=== PATIENT | female | born 1960 | race African-American/Black ===

== ENCOUNTER 2024-10-15 17:39 | Observation (INO) ==
[2024-10-15] MEDS: SODIUM CHLORIDE 0.9% 1,000 ML IV ONE (17:52)
[2024-10-15 18:15] LABS: Hematocrit (blood only) 30.3 % (37.0-47.0); Hemoglobin 10.3 g/dl (12.0-16.0); Immature Granulocytes # (auto) 0.02 K/uL (0.01-0.20); Immature Granulocytes % (auto) 0.3 %; Mean Corpuscular Hemoglobin 29.4 pg (25.0-34.0); Mean Corpuscular Volume 86.6 fL (80.0-100.0); Platelet Count 204 K/uL (130-400); RDW Standard Deviation 43.3 fL (36.4-46.3); Red Blood Count 3.50 M/uL (4.20-5.40); White Blood Count 7.52 K/ul (4.8-10.8)
--- NOTE | 2024-10-15 18:22 | CT Scan Report ---
EXAMINATION: Head CT without CLINICAL HISTORY: Syncope PRIORS: None TECHNIQUE: Contiguous axial images were obtained through the head without the use of intravenous contrast. Sagittal and coronal reformations are supplied. FINDINGS: Appropriate parenchymal volume is noted. Boyd-white differentiation is preserved. No edema or midline shift. A small chronic appearing infarction of the left occipital lobe, medial aspect noted in the SAW [employer] distribution. No intra-axial or extra-axial hemorrhage. Ventricles are normal in size and configuration. Brainstem and cerebellum have a normal appearance. Calvarium unremarkable. Paranasal sinuses and mastoid air cells are well-pneumatized. Globes are intact. No retrobulbar abnormality. IMPRESSION: 1. No CT evidence of an acute intracranial abnormality. If clinical concern warrants, brain MRI could be considered. 2. Small chronic left occipital lobe infarction. Electronically signed by Emerald Lucero 10-15-2024 6:20 PM
[2024-10-15 18:32] LABS: Alanine Aminotransferase 9.0 U/L (7-52); Albumin Globulin Ratio 0.9 (0.9-2); Alkaline Phosphatase 94.0 U/L (34-104); Anion Gap 10.0 (3-11); Bilirubin,Total 0.4 mg/dl (0.2-1.0); Blood Urea Nitrogen 63.0 mg/dl (6-23); Calcium 9.3 mg/dl (8.6-10.3); Carbon Dioxide 21.0 mmol/L (21-32); Chloride 106.0 mmol/L (98-107); Creatinine Clr Calc Pharmacy 18.3 ml/min; Globulin 4.4 gm/dl (2.5-4.0); Glucose 130.0 mg/dl (70-99(Fasting)); Lipase 165.0 U/L (11-82); Potassium 4.0 mmol/L (3.5-5.1); Sodium 137.0 mmol/L (136-145); Total Protein 8.3 gm/dl (6.0-8.3)
--- NOTE | 2024-10-15 18:54 | Emergency Department Note ---
Impression & Plan Syncope, VAMSI (acute kidney injury) ED Provider Note NAME: ALEXSANDRA [id number] CHAMBERS AGE: 64 SEX: F : 1960 ARRIVES VIA: Ambulance INFORMANT: Patient ED PROVIDER(S): Lio Dorsey DO CHIEF COMPLAINT: Syncope HPI: Patient is a 64-year-old female with a past medical history of hypertension, kidney disease, and diabetes who presents to the ER for a syncopal event. She was walking and she can very lightheaded and she passed out. She does take Eliquis. She denies any head pain or neck pain. No other complaints from that standpoint. There is no reported seizure activity. Per report from the provider there he was concerned due to her past medical history and the syncope and has had an increasing creatinine and consequently wanted her transferred here for admission and further evaluation. Patient denies any headache or change in vision. No chest pain or shortness of breath. No nausea, vomiting, or diarrhea. No dysuria, urgency, or frequency. No other exacerbating or remitting factors at this time. ADDITIONAL HISTORY OBTAINED: Guards were present at bedside do not know what happened as they were not present when she passed out. Chronic Medical/Social Conditions Affecting Care: Per HPI PAST MEDICAL HISTORY:See Below PAST SURGICAL HISTORY:See Below FAMILY HISTORY:See Below SOCIAL HISTORY:See Below HOME MEDICATIONS:See Below ALLERGIES:See Below VITALS:See Below PHYSICAL EXAMINATION: GENERAL: Sitting up in bed, alert, well appearing, well nourished, no distress, non-toxic HEAD: NC/AT EYE EXAM: normal conjunctiva. PERRL and EOM's grossly intact. OROPHARYNX: mucous membranes are moist LUNGS: Clear to auscultation. Normal chest wall mechanics HEART: no murmurs, S1 normal and S2 normal ABDOMEN: abdomen soft, non-tender, normo-active bowel sounds, no masses, no rebound or guarding. BACK: Back is symmetrical on inspection and there is no deformity, no midline tenderness, no CVA tenderness. UPPER EXTREMITIES: upper extremities are grossly normal. LOWER EXTREMITIES: No pitting edema. NEURO EXAM: Normal sensorium, cranial nerves II-XII intact, normal speech, no weakness of arms, no weakness of legs. No drift. Finger to nose intact. Gross sensation intact. MEDICAL DECISION MAKING: Patient is a 64-year-old female with a past medical history as described above who presents to the ER for syncopal event with no prodromal symptoms with exception of feeling lightheaded and passing out acutely. IVs were established and blood work was obtained. Labs showed no significant leukocytosis. She does have anemia of 10. BMP with elevated BUN and creatinine 2.9. LFTs bilirubin were unremarkable. Troponin was negative. Lipase mildly elevated at 160. No belly pain to go along with pancreatitis. She is neurologically intact at this time. CT head was negative. She was given IV fluids. She was updated at bedside. EKG was nondiagnostic. Discussed case with the hospitalist for further evaluation management treatment. Consults/Care Managements Discussions: Per [facility] Triage Nursing notes reviewed. Limited review of prior medical records performed Vital Signs: reviewed and remarkable for hypertension Differential diagnosis: Differential diagnosis includes etiologies such as vasovagal event, infection, hypoglycemia, electrolyte abnormalities, cardiac sources, intracerebral event, toxicologic, neurologic, as well as others were entertained. ER treatment provided: See below Diagnostics interpreted by me include EKG and cardiac monitoring as listed below: -Cardiac Monitoring: An order was placed for continuous cardiac monitoring. The monitor shows a rate of 70 with sinus rhythm. -ECG: Sinus rhythm rate of 65 Normal axis No PVCs QTc 426 T wave inversion in the high lateral leads T wave inversion in septal leads -Laboratory studies:Interpreted by me as stated above in [facility] and shown below. Imaging studies: Xrays: As interpreted by me: Portable AP upright 1 view of the chest shows no focal M-Trate CTs show: CT head was negative per radiology Procedures:none Critical Care: None Past Med/Surg History Problem List (Updated 10/15/24 @ 19:15 by Lio Dorsey DO) VAMSI (acute kidney injury) (Acute) Syncope (Acute) Social History Smoking Status: Never smoker Preferred Language: Bahraini Feels Safe at Home: Yes Allergies Allergies Allergy/AdvReac Type Severity Reaction Status Date / Time No Known Allergies Allergy Verified 10/15/24 18:44 Home Meds Home Medications Medication Instructions Recorded Confirmed albuterol sulfate 90 mcg/actuation 2 puff inhalation QID PRN 10/15/24 10/15/24 aerosol inhaler EXACERBATION apixaban 5 mg tablet (Eliquis) 5 mg PO BID 10/15/24 10/15/24 atorvastatin 40 mg tablet 40 mg PO DAILY 10/15/24 10/15/24 empagliflozin 25 mg tablet 25 mg PO DAILY 10/15/24 10/15/24 (Jardiance) hydrochlorothiazide 12.5 mg tablet 12.5 mg PO DAILY 10/15/24 10/15/24 losartan 100 mg tablet 100 mg PO DAILY 10/15/24 10/15/24 metoprolol succinate 25 mg 25 mg PO DAILY 10/15/24 10/15/24 tablet,extended release 24 hr nifedipine 90 mg tablet,extended 90 mg PO DAILY 10/15/24 10/15/24 release 24 hr spironolactone 25 mg tablet 12.5 mg PO DAILY 10/15/24 10/15/24 Results & Data (ED) Vital Signs Vital Signs - 24 hr 10/15/24 17:45 10/15/24 18:25 10/15/24 18:30 Temperature 37.2 C Temperature Source Oral Pulse Rate 67 60 Pulse Rate [Apical] 59 L Respiratory Rate 16 12 18 Respiratory Effort / Characteristics Non-Labored Spontaneous Respiratory Depth Normal Blood Pressure 141/100 H 145/78 H Blood Pressure [Right Arm] 145/78 H Blood Pressure Mean 113 100 Blood Pressure Mean [Right Arm] 100 Pulse Oximetry 95 100 99 Oxygen Delivery Method Room Air Room Air Room Air Sepsis Recent Fever Within 48 Hours No Sepsis New/Unexplained Change in Mental Status No Sepsis Action Taken by Nursing No Action Required Pulse Oximetry Post Tiitration 10/15/24 18:38 10/15/24 18:41 10/15/24 18:45 Temperature Temperature Source Pulse Rate 62 Pulse Rate [Apical] Respiratory Rate Respiratory Effort / Characteristics Respiratory Depth Blood Pressure Blood Pressure [Right Arm] Blood Pressure Mean Blood Pressure Mean [Right Arm] Pulse Oximetry 100 Oxygen Delivery Method Room Air Room Air Sepsis Recent Fever Within 48 Hours Sepsis New/Unexplained Change in Mental Status Sepsis Action Taken by Nursing Pulse Oximetry Post Tiitration 100 Laboratory Data 10/15/24 17:53 10/15/24 17:53 Lab Results 10/15/24 10/15/24 Range/Units 17:53 17:58 WBC 7.52 (4.8-10.8) K/ul RBC 3.50 L (4.20-5.40) M/uL Hgb 10.3 L (12.0-16.0) g/dl POC Hgb 10.2 L (12.0-16.0) g/dl Hct 30.3 L (37.0-47.0) % POC Hct 30 L (37-47) % MCV 86.6 (80.0-100.0) fL MCH 29.4 (25.0-34.0) pg MCHC 34.0 (32.0-36.0) g/dL RDW Std Deviation 43.3 (36.4-46.3) fL RDW Coeff of Johan 13.7 (11.5-14.5) % Plt Count 204 (130-400) K/uL MPV 11.4 (9.4-12.4) fL Immature Gran % (Auto) 0.3 % Neut % (Auto) 69.0 % Lymph % (Auto) 21.9 % Victoria % (Auto) 6.0 % Eos % (Auto) 2.5 % Baso % (Auto) 0.3 % Neut # (Auto) 5.19 (1.40-6.50) K/uL Lymph # (Auto) 1.65 (1.20-3.40) K/uL Victoria # (Auto) 0.45 (0.11-0.59) K/uL Eos # (Auto) 0.19 (0.00-0.50) K/uL Baso # (Auto) 0.02 (0.00-0.20) K/uL Immature Gran # (Auto) 0.02 (0.01-0.20) K/uL POC Sodium 140 (135-144) mmol/L Sodium 137 (136-145) mmol/L POC Potassium 4.0 (3.3-5.0) mmol/L Potassium 4.0 (3.5-5.1) mmol/L POC Chloride 107 (101-112) mmol/L Chloride 106 (98-107) mmol/L Carbon Dioxide 21 (21-32) mmol/L POC Total CO2 21 L (24-31) mmol/L Anion Gap 10 (3-11) POC Anion Gap 16.0 (16-25) mmol/L POC BUN 52 H (7-18) mg/dl BUN 63 H (6-23) mg/dl Creatinine 2.91 H (0.6-1.2) mg/dl POC Creatinine 3.3 H (0.6-1.3) mg/dl Est Cr Clr Drug Dosing 18.3 ml/min eGFR 17.46 BUN/Creatinine Ratio 21.6 H (10-20) Glucose 130 H (70-99(Fasting)) mg/dl POC Glucose (other) 125 H (70-99) mg/dl Calcium 9.3 (8.6-10.3) mg/dl POC Ioniz Calcium Piyush 1.12 (1.12-1.32) mmol/l Total Bilirubin 0.4 (0.2-1.0) mg/dl AST 15 (13-39) U/L ALT 9 (7-52) U/L Alkaline Phosphatase 94 (34-104) U/L Troponin I High Sens 12.4 (0-14) pg/ml Total Protein 8.3 (6.0-8.3) gm/dl Albumin 3.9 (3.4-5.0) gm/dl Globulin 4.4 H (2.5-4.0) gm/dl Albumin/Globulin Ratio 0.9 (0.9-2) Lipase 165 H (11-82) U/L Administered Medications Discontinued Medications Sodium Chloride (Nss) 1,000 mls @ 999 mls/hr IV .Q1H1M ONE Stop: 10/15/24 18:49 Last Admin: 10/15/24 17:52 Dose: 999 mls/hr Documented By: [facility] Imaging Data Radiologist's Impression: Chest X-Ray 10/15/24 17:43 Chest radiograph, one view History: Chest pain Comparison: None Findings: Single AP view of the chest performed. No focal consolidation or pleural effusion. No pneumothorax. The cardiomediastinal silhouette is within normal limits. Normal pulmonary vascularity. No evidence for lymphadenopathy. No visualized bony or soft tissue abnormality. Impression: Normal chest radiograph Electronically signed by Harshil Toney 10-15-2024 7:[address] 10/15/24 17:43 EXAMINATION: Head CT without CLINICAL HISTORY: Syncope PRIORS: None TECHNIQUE: Contiguous axial images were obtained through the head without the use of intravenous contrast. Sagittal and coronal reformations are supplied. FINDINGS: Appropriate parenchymal volume is noted. Boyd-white differentiation is preserved. No edema or midline shift. A small chronic appearing infarction of the left occipital lobe, medial aspect noted in the [employer] distribution. No intra-axial or extra-axial hemorrhage. Ventricles are normal in size and configuration. Brainstem and cerebellum have a normal appearance. Calvarium unremarkable. Paranasal sinuses and mastoid air cells are well-pneumatized. Globes are intact. No retrobulbar abnormality. IMPRESSION: 1. No CT evidence of an acute intracranial abnormality. If clinical concern warrants, brain MRI could be considered. 2. Small chronic left occipital lobe infarction. Electronically signed by Emerald Lucero 10-15-2024 6:20 PM Discharge Plan Visit Data Chief Complaint: Syncope Stated Complaint: syncope ED Provider: Lio Dorsey Discharge Problem: Syncope, VAMSI (acute kidney injury) Condition: Fair Forms Stand Alone Forms: My [facility] Prescriptions Prescriptions: No Action atorvastatin 40 mg Tablet 40 mg PO DAILY spironolactone 25 mg Tablet 12.5 mg PO DAILY nifedipine 90 mg Tablet Extended Release 24hr 90 mg PO DAILY metoprolol succinate 25 mg Tablet Extended Release 24 Hr 25 mg PO DAILY albuterol sulfate [Proventil HFA] 90 mcg/actuation Hfa Aerosol Inhaler 2 puff INHALATION QID PRN (Reason: EXACERBATION) losartan 100 mg Tablet 100 mg PO DAILY hydrochlorothiazide 12.5 mg Tablet 12.5 mg PO DAILY Eliquis 5 mg Tablet 5 mg PO BID Jardiance 25 mg Tablet 25 mg PO DAILY Referrals Referrals: Chaparro Moya DO [Primary Care Provider] - Discharge Problem: Syncope Qualifiers: Syncope type: unspecified Qualified Code(s): R55 - Syncope and collapse
--- NOTE | 2024-10-15 19:03 | XRay Report ---
Chest radiograph, one view History: Chest pain Comparison: None Findings: Single AP view of the chest performed. No focal consolidation or pleural effusion. No pneumothorax. The cardiomediastinal silhouette is within normal limits. Normal pulmonary vascularity. No evidence for lymphadenopathy. No visualized bony or soft tissue abnormality. Impression: Normal chest radiograph Electronically signed by Harshil Toney 10-15-2024 7:03 PM
--- NOTE | 2024-10-15 19:20 | History & Physical Report ---
Date of Service October 15, 2024 Assessment & Plan (1) Syncope: (2) VAMSI (acute kidney injury): (3) Anemia: Plan 64-year-old female PMHx HTN, CKD, A-fib on Eliquis, and HLD presenting for syncopal episode afternoon of arrival after being in the heat all day. Reports feeling dizzy and hot prior to episode. ED evaluation reveals CBC without leukocytosis, H&H 10.3/30.3; CMP creatinine 2.91, BUN 63, ratio 1.6, glucose 130; troponin 12.4; lipase 165; CXR WNL; head CT no acute findings, small chronic L occipital lobe infarct; EKG NSR, possible LAE, LVH at 65 bpm.; Provided with 1L NSS in ED. #Syncope Syncopal event the day of arrival after being outside all day. [place] lightheaded before and then passed out, unsure how long, not sure if she had involuntary movements. Did not hit head. States that women around her helped to hold her up. Also in setting of VAMSI, increased heat exposure, multiple BP medications. Low suspicion for ACS or neurologic etiology. - On multiple BP meds, no recent changes, ? orthostasis day of arrival -- holding HCTZ + spironolactone at admission, continue additional BP meds for now - CBC without leukocytosis, H&H 10.3/30.3; CMP creatinine 2.91, BUN 63; troponin 12.4 - CBC, BMP am - TSH pending - EKG NSR with possible LAE and LVH at 65 bpm, no ischemic changes - CXR WNL - CT head no acute findings, revealed small chronic L occipital lobe infarct - Echo pending - Orthostatic vitals pending - Fall precautions - IVF LR @ 100 mL/hr #VAMSI/CKD History of CKD, reported baseline creatinine around 2.1-2.4. On Jardiance. Received 1L NSS in ED. - Cr 2.91, BUN 63 - UA pending - Bladder scan prn - Hold nephrotoxic agents - HCTZ, spironolactone - Jardiance held -- restricted to CHF/DM use inpatient when ordering from home meds - continue at discharge - IVF LR @ 100 mL/hr #Anemia In setting of CKD; denies bleeding. - H&H 10.3/30.3 - CBC am - Iron panel, vitamin B12, folate pending #HTN- HCTZ, losartan, metoprolol, nifedipine, spironolactone - hold HCTZ and spironolactone, continue additional meds with close attention to HTN #Afib- EKG NSR on admission; Eliquis, metoprolol - continue #Asthma- Proventil prn - continue #HLD- Atorvastatin - continue Dispo: Obs, med/tele VTE Prophylaxis: On Eliquis This document was dictated utilizing [employer]. Please excuse any grammatical errors that may be secondary to use of this software. Admission and Anticipated Discharge Date Admission Date: 10/15/2024 History of Present Illness Chief Complaint: Syncope Primary Care Provider: Chaparro Moya DO 64-year-old female PMHx HTN, CKD, A-fib on Eliquis, and HLD presenting for syncopal episode afternoon of arrival after being in the heat all day. Patient states that she was outside throughout the day in the heat with another woman. Eventually the officers had told them that it was time to go back inside and as she was heading for the door she started to feel lightheaded/dizzy, feeling as though she was going to fall over. She states that she started to fall down and believes that she had lost consciousness at that point but the one around her helped to hold her up. She is unsure how long she was unconscious for, stating "probably just a few moments." No involuntary movements noted per patient. No history of seizures. She denies experiencing any chest pain, SOB, headache, or additional symptoms prior to this episode. Denies chest pain, SOB, palpitations, abdominal pain, N/V/D/C, numbness/tingling, fever/chills, LUTS, URI symptoms, swelling, or weakness. She is back to her normal health at present. Denies postictal state. She takes all of her medications as prescribed, specifically taking her Eliquis as prescribed. ED evaluation reveals CBC without leukocytosis, H&H 10.3/30.3; CMP creatinine 2.91, BUN 63, ratio 1.6, glucose 130; troponin 12.4; lipase 165; CXR WNL; head CT no acute findings, small chronic L occipital lobe infarct; EKG NSR, possible LAE, LVH at 65 bpm.; Provided with 1L NSS in ED. Please see Dr. Rivera's attestation for adjustments/additions to treatment plan. Allergies Allergy/AdvReac Type Severity Reaction Status Date / Time No Known Allergies Allergy Verified 10/15/24 18:44 Home Medications Medication Instructions Recorded Confirmed Type albuterol sulfate 90 mcg/actuation 2 puff inhalation QID PRN 10/15/24 10/15/24 History aerosol inhaler EXACERBATION apixaban 5 mg tablet (Eliquis) 5 mg PO BID 10/15/24 10/15/24 History atorvastatin 40 mg tablet 40 mg PO DAILY 10/15/24 10/15/24 History empagliflozin 25 mg tablet 25 mg PO DAILY 10/15/24 10/15/24 History (Jardiance) hydrochlorothiazide 12.5 mg tablet 12.5 mg PO DAILY 10/15/24 10/15/24 History losartan 100 mg tablet 100 mg PO DAILY 10/15/24 10/15/24 History metoprolol succinate 25 mg 25 mg PO DAILY 10/15/24 10/15/24 History tablet,extended release 24 hr nifedipine 90 mg tablet,extended 90 mg PO DAILY 10/15/24 10/15/24 History release 24 hr spironolactone 25 mg tablet 12.5 mg PO DAILY 10/15/24 10/15/24 History Past Med/Surg History Problem List Anemia VAMSI (acute kidney injury) (Acute) Syncope (Acute) Social History Smoking Status: Never smoker Hx Alcohol Use: No Hx Substance Use: No Preferred Language: Honduran Communication Ability: Effective Tongue Carrier Required: No Beliefs That Will Affect Care: None Current Living Situation: Other Current Living Situation Comment: inmate Feels Safe at Home: Yes Safety Concerns: Feels Safe At This Time Assistive Devices: Glasses Review of Systems Review of Systems: All systems reviewed & are unremarkable except as noted in Subjective Physical Exam Physical Exam: General: No acute distress Skin: Warm and dry; BLE dry skin Head: Normocephalic, atraumatic Eyes: PERRL, conjunctivae clear, sclera non-icteric ENT: External ear and ear canal without swelling; nose atraumatic; good dentition, tongue normal appearance, pharynx normal Neck: Supple, no LAD Cardio: RRR, no M/G/R, S1 and S2 normal Resp: No respiratory distress, Lungs CTA in all lobes bilaterally, no wheezes, rales, or rhonchi Abdomen: Soft, symmetric, nontender; No masses or hepatosplenomegaly; Bowel sounds normoactive MSK: No deformities; pulses palpable and equal; no edema. Neuro: Awake, alert; Sensation intact bilaterally; CN grossly intact Psych: Appropriate mood and affect; good judgement and insight. 2 officers present in room at time of vi sit. Results & Data Results & Data Vital Signs (Past 12 Hours) Vital Signs Temp Pulse Pulse Resp BP BP Pulse Ox 10/15/24 18:45 62 10/15/24 18:41 10/15/24 18:38 100 10/15/24 18:30 60 18 145/78 H 99 10/15/24 18:25 59 L 12 145/78 H 100 10/15/24 17:45 37.2 C 67 16 141/100 H 95 O2 Del Method 10/15/24 18:45 10/15/24 18:41 Room Air 10/15/24 18:38 Room Air 10/15/24 18:30 Room Air 10/15/24 18:25 Room Air 10/15/24 17:45 Room Air Laboratory Results 10/15/24 10/15/24 17:58 17:53 WBC 7.52 RBC 3.50 L Hgb 10.3 L POC Hgb 10.2 L Hct 30.3 L POC Hct 30 L MCV 86.6 MCH 29.4 MCHC 34.0 RDW Std Deviation 43.3 RDW Coeff of Johan 13.7 Plt Count 204 MPV 11.4 Immature Gran % (Auto) 0.3 Neut % (Auto) 69.0 Lymph % (Auto) 21.9 [place] % (Auto) 6.0 Eos % (Auto) 2.5 Baso % (Auto) 0.3 Neut # (Auto) 5.19 Lymph # (Auto) 1.65 [place] # (Auto) 0.45 Eos # (Auto) 0.19 Baso # (Auto) 0.02 Immature Gran # (Auto) 0.02 POC Sodium 140 Sodium 137 POC Potassium 4.0 Potassium 4.0 POC Chloride 107 Chloride 106 Carbon Dioxide 21 POC Total CO2 21 L Anion Gap 10 POC Anion Gap 16.0 POC BUN 52 H BUN 63 H Creatinine 2.91 H POC Creatinine 3.3 H Est Cr Clr Drug Dosing 18.3 eGFR 17.46 BUN/Creatinine Ratio 21.6 H Glucose 130 H POC Glucose (other) 125 H Calcium 9.3 POC Ioniz Calcium Piyush 1.12 Total Bilirubin 0.4 AST 15 ALT 9 Alkaline Phosphatase 94 Troponin I High Sens 12.4 Total Protein 8.3 Albumin 3.9 Globulin 4.4 H Albumin/Globulin Ratio 0.9 Lipase 165 H Diagnostic Findings Chest X-Ray 10/15/24 17:43 Chest radiograph, one view History: Chest pain Comparison: None Findings: Single AP view of the chest performed. No focal consolidation or pleural effusion. No pneumothorax. The cardiomediastinal silhouette is within normal limits. Normal pulmonary vascularity. No evidence for lymphadenopathy. No visualized bony or soft tissue abnormality. Impression: Normal chest radiograph Electronically signed by Harshil Toney 10-15-2024 7:[address] 10/15/24 17:43 EXAMINATION: Head CT without CLINICAL HISTORY: Syncope PRIORS: None TECHNIQUE: Contiguous axial images were obtained through the head without the use of intravenous contrast. Sagittal and coronal reformations are supplied. FINDINGS: Appropriate parenchymal volume is noted. Boyd-white differentiation is preserved. No edema or midline shift. A small chronic appearing infarction of the left occipital lobe, medial aspect noted in the [employer] distribution. No intra-axial or extra-axial hemorrhage. Ventricles are normal in size and configuration. Brainstem and cerebellum have a normal appearance. Calvarium unremarkable. Paranasal sinuses and mastoid air cells are well-pneumatized. Globes are intact. No retrobulbar abnormality. IMPRESSION: 1. No CT evidence of an acute intracranial abnormality. If clinical concern warrants, brain MRI could be considered. 2. Small chronic left occipital lobe infarction. Electronically signed by Emerald Lucero 10-15-2024 6:20 PM Medications Administered 1L NSS ECG Additional Comments: NSR, possible LAE, LVH 65 bpm, AR 180, QRS 90, QT/QTc 410/426, PRT 59/0/101 Code Status & VTE Plan Code Status Full Supervising Physician Co-Signing Physician Notes Patient seen examined, chart reviewed, case discussed with NEL Davies I agree with the assessment plan as document above. In brief, patient is a 64-year-old female with history of hypertension, A-fib on Eliquis and hyperlipidemia presenting after a syncopal episode. No chest pain or shortness of breath. Patient feels well at present On physical exam she is resting comfortably, no acute distress + S1, S2, regular, no murmur/rub/gallops Lungs CTA Abdomen soft, nontender, nondistended Extremities warm, well-perfused Labs and images reviewed Assessment/plan Syncopecheck orthostatics, 2D echo, hold diuretics VAMSI with creatinine = 2.91, baseline of 2.1-2.4. Continue IV fluids overnight Remainder as above PG Care Time/CCT Total # of Minutes Spent Total Time Spent with Patient: Total time spent is greater than 50% in coordination of care (as documented) at patient's floor/unit and/or counseling patient: Coding Level of Care Code 12276 INT INP/OBS CARE 75MIN Diagnoses Syncope R55 Syncope type: unspecified VAMSI (acute kidney injury) N17.9 Anemia D64.9 (1) Syncope Syncope type: unspecified Qualified Code(s): R55 - Syncope and collapse
[2024-10-15 20:23] LABS: Thyroid Stimulating Hormone 1.173 uIu/ml (0.300-4.500)
[2024-10-15] MEDS ORDERED: MELATONIN 3 MG TAB PO PRN (20:52)
[2024-10-15] MEDS ORDERED: ONDANSETRON INJ 2 MG/ML 2 ML VIAL IV PRN (20:52)
[2024-10-15] MEDS ORDERED: MAGNESIUM HYDROXIDE SUSP 30 ML UDC PO PRN (20:52)
[2024-10-15] MEDS ORDERED: ALBUTEROL HFA 8 GM INHALER INH PRN (20:52)
[2024-10-15] MEDS ORDERED: POLYETHYLENE (MIRALAX) 17 GM PACK PO PRN (20:52)
[2024-10-15] MEDS: LACTATED RINGER'S 1,000 ML IV SCH (21:07)
[2024-10-15] MEDS: APIXABAN 5 MG TABLET PO SCH (21:32)
[2024-10-15] MEDS: BETAMETHASONE VAL 0.1% CR 15 GM EXT PRN (22:17)
[2024-10-16 07:17] LABS: Hematocrit (blood only) 28.4 % (37.0-47.0); Hemoglobin 9.7 g/dl (12.0-16.0); Mean Corpuscular Hemoglobin 29.5 pg (25.0-34.0); Mean Corpuscular Volume 86.3 fL (80.0-100.0); Platelet Count 188 K/uL (130-400); RDW Standard Deviation 42.9 fL (36.4-46.3); Red Blood Count 3.29 M/uL (4.20-5.40); White Blood Count 5.47 K/ul (4.8-10.8)
[2024-10-16 07:38] LABS: Anion Gap 7.0 (3-11); Blood Urea Nitrogen 52.0 mg/dl (6-23); Calcium 9.1 mg/dl (8.6-10.3); Carbon Dioxide 24.0 mmol/L (21-32); Chloride 111.0 mmol/L (98-107); Creatinine Clr Calc Pharmacy 21.5 ml/min; Glucose 89.0 mg/dl (70-99(Fasting)); Iron 66.0 mcg/dl (35-150); Potassium 3.8 mmol/L (3.5-5.1); Sodium 142.0 mmol/L (136-145); Total Iron Binding Cap Calc 288.0 mcg/dl (250-450); Transferrin 206.0 mg/dl (200-360); Transferrin (FE) Percent Satur 23.0 % (15-50)
[2024-10-16 07:56] LABS: Ferritin 33.5 ng/ml (8-388)
[2024-10-16 08:02] LABS: Folate (Folic Acid),Ser orPlas 14.3 ng/ml (>5.38)
[2024-10-16 08:03] LABS: Vitamin B12 405.0 pg/ml (180-914)
[2024-10-16] MEDS: LOSARTAN POTASSIUM 50 MG TAB PO SCH (08:15)
[2024-10-16] MEDS: ATORVASTATIN 40 MG TAB PO SCH (08:15)
[2024-10-16] MEDS: METOPROLOL SUCC 25MG EXT REL TAB PO SCH (08:15)
[2024-10-16] MEDS: NIFEdipine EXTENDED REL 30 MG TABCR PO SCH (08:16)
[2024-10-16] MEDS: EMPAGLIFLOZIN 25 MG TAB PO SCH (08:16)
--- NOTE | 2024-10-16 11:12 | Electrocardiogram Report ---
Test Reason : Blood Pressure : */* mmHG Vent. Rate : 65 BPM Atrial Rate : 65 BPM P-R Int : 180 ms QRS Dur : 90 ms QT Int : 410 ms P-R-T Axes : 59 0 101 degrees QTcB Int : 426 ms Normal sinus rhythm Possible Left atrial enlargement Minimal voltage criteria for LVH, may be normal variant Septal infarct , age undetermined T wave abnormality, consider lateral ischemia Abnormal ECG No previous ECGs available Confirmed by Victor Manuel Tam ([id number]) on 10/16/2024 11:12:32 AM Referred By: Confirmed By: Victor Manuel Tam
--- NOTE | 2024-10-16 12:26 | XCELERA ---
[id number]
--- NOTE | 2024-10-16 13:06 | Hospitalist Progress Note ---
Date of Service October 16, 2024 Assessment & Plan (1) Syncope: (2) VAMSI (acute kidney injury): (3) Anemia: Plan 64-year-old female PMHx HTN, CKD, A-fib on Eliquis, and HLD presenting for syncopal episode afternoon of arrival after being in the heat all day. Reports feeling dizzy and hot prior to episode. Cardiac workup unremarkable including EKG with NSR no ischemic changes, telemetry monitoring with NSR, negative troponin, echocardiogram with EF 55-60%, no significant valvular pathology, no regional wall motion abnormalities, normal LV systolic function. TSH WNL at 1.173. CXR unremarkable. Head CT with no acute findings, revealed small chronic left occipital lobe infarct. #Syncope - Syncopal event the day of arrival after being outside all day. [place] lightheaded before and then passed out, unsure how long, not sure if she had involuntary movements. Did not hit head. States that women around her helped to hold her up. Also in setting of VAMSI, increased heat exposure, multiple BP medications. Low suspicion for ACS or neurologic etiology. - Orthostatic vital signs negative - Blood pressure well-controlled with holding HCTZ and spironolactone, most recent BP 119/58 - continue to hold HCTZ and spironolactone for now - Continue IVF with LR at 100 mL/h - Fall precautions #VAMSI/CKD - History of CKD, reported baseline creatinine around 2.1-2.4. On Jardiance. - Cr 2.91, BUN 63 on admission. Now with improvement Cr 2.67, BUN 52 - Suspect this is secondary to dehydration - Continue IVF with LR at 100 mL/h - Bladder scan PRN - UA still uncollected - Hold nephrotoxic agents - HCTZ, spironolactone - Jardiance held -- restricted to CHF/DM use inpatient when ordering from home meds - continue at discharge #Anemia - In setting of CKD; denies bleeding - H&H 10.3/30.3 on admission. Now 9.7/28.4 - suspect dilutional effect from IVF, no bleeding reported - Iron panel, vitamin B12, folate all WNL - Repeat CBC with AM labs #HTN- HCTZ, losartan, metoprolol, nifedipine, spironolactone - hold HCTZ and spironolactone, continue additional meds with close attention to HTN #Afib- EKG NSR on admission; Frankie, metoprolol - continue #Asthma- Proventil prn - continue #HLD- Atorvastatin - continue Dispo: Anticipate discharge 10/17 VTE Prophylaxis: On Frankie Case and dispo discussed with PCP at [facility] Admission and Anticipated Discharge Date Admission Date: October 15, 2024 Subjective Patient seen and evaluated at bedside with 2 guards present. She reports feeling well overall. She denies any lightheadedness, dizziness, chest pain, palpitations, shortness of breath. We discussed the result of her echocardiogram and her labs from this morning. Anticipate discharge tomorrow, 10/17. No additional complaints or concerns at this time. Reviewed telemetry: NSR in 50s. Physical Exam Physical Exam: General: No acute distress, nondiaphoretic, well-developed, well-nourished. Moist mucous membranes. Skin: Warm, dry. No peripheral edema noted. Bilateral lower extremities with dry skin. Cardiac: Regular rate and rhythm without murmurs gallops or rubs. Pulm: Clear to auscultation bilaterally without wheezes, rales or rhonchi. Normal respiratory effort. 100% on room air. Abdominal: Soft, nontender, nondistended. Bowel sounds present. Neuro: A&O x3. No focal neurological deficits. Results & Data Results & Data Vital Signs (Past 12 Hours) Vital Signs Temp Pulse Pulse Resp BP Pulse Ox O2 Del Method 10/16/24 11:03 98.1 F 78 18 119/58 L 100 Room Air 10/16/24 07:00 48 L 10/16/24 07:00 98.1 F 56 L 17 143/67 H 100 Room Air 10/16/24 04:12 97.7 F 53 L 16 131/67 100 Room Air Laboratory Results Reviewed CBC with differential Reviewed CMP, chemistries Reviewed iron panel Diagnostic Findings Reviewed CXR, head CT Reviewed echocardiogram PG Care Time/CCT Total # of Minutes Spent Total Time Spent with Patient: Total time spent is greater than 50% in coordination of care (as documented) at patient's floor/unit and/or counseling patient: Coding Level of Care Code 23080 SUB INP/OBS CARE 3/50MIN Diagnoses Syncope R55 Syncope type: unspecified VAMSI (acute kidney injury) N17.9 Anemia D64.9 (1) Syncope Syncope type: unspecified Qualified Code(s): R55 - Syncope and collapse
[2024-10-16] MEDS: ACETAMINOPHEN 325 MG TAB PO PRN (22:46)
[2024-10-17 03:05] VITALS: O2SAT 100
[2024-10-17 06:57] LABS: Anion Gap 6.0 (3-11); Blood Urea Nitrogen 46.0 mg/dl (6-23); Calcium 8.9 mg/dl (8.6-10.3); Carbon Dioxide 24.0 mmol/L (21-32); Chloride 110.0 mmol/L (98-107); Creatinine Clr Calc Pharmacy 22.1 ml/min; Glucose 84.0 mg/dl (70-99(Fasting)); Potassium 3.8 mmol/L (3.5-5.1); Sodium 140.0 mmol/L (136-145)
[2024-10-17 07:49] VITALS: PULSE 52; RESP 18; TEMP 98.4
--- NOTE | 2024-10-17 10:05 | Discharge Summary ---
Discharge Summary Date of Service October 17, 2024 Principal Dx & Hospital Course #1 = Principal Diagnosis (1) Syncope: (2) VAMSI (acute kidney injury): (3) Bradycardia: (4) Anemia: Plan 64-year-old female PMHx HTN, CKD, A-fib on Eliquis, and HLD presenting for syncopal episode afternoon of arrival after being in the heat all day. Reports feeling dizzy and hot prior to episode, then passed out, unsure how long, not sure if she had involuntary movements. Did not hit head. States that women around her helped to hold her up. She was admitted for a syncopal workup and treatment of her VAMSI. #Syncope - Syncopal event the day of arrival after being outside all day. Also in setting of VAMSI, increased heat exposure, multiple BP medications. Low suspicion for ACS or neurologic etiology. - Cardiac workup unremarkable including EKG with NSR no ischemic changes, telemetry monitoring with NSR, negative troponin. TSH WNL at 1.173 - Echocardiogram with EF 55-60%, no significant valvular pathology, no regional wall motion abnormalities, normal LV systolic function - CXR unremarkable. Head CT with no acute findings, revealed small chronic left occipital lobe infarct - Orthostatic vital signs negative #VAMSI/CKD - History of CKD, reported baseline creatinine around 2.1-2.4. On Jardiance. - Cr 2.91, BUN 63 on admission. Now with improvement Cr 2.60, BUN 46 - Suspect this was secondary to dehydration - Hold nephrotoxic agents for a few more days - HCTZ, spironolactone #Afib - EKG NSR on admission - Asymptomatic sustained bradycardia in 30-40s, HR in 50s with activity - Reduced metoprolol from 25 mg daily to 12.5 mg daily. Patient reports her PCP has been titrating this down outpatient. Likely can be discontinued all together in outpatient setting. Will only decrease dose now to avoid rebound tachycardia - Continue Eliquis #Anemia - In setting of CKD; denies bleeding - H&H 10.3/30.3 on admission - Iron panel, vitamin B12, folate all WNL #HTN - HCTZ, losartan, metoprolol, nifedipine, spironolactone - hold HCTZ and spironolactone, continue additional meds with close attention to HTN #Asthma - Proventil prn - continue #HLD - Atorvastatin - continue Dispo: discharged back to [facility] 10/17 VTE Prophylaxis: On Eliquis Notes For Next Care Provider Consider discontinuing metoprolol all together given bradycardia Resume HCTZ and spironolactone when appropriate Medication Changes From Visit Decreased metoprolol from 25 mg daily to 12.5 mg daily Held spironolactone and HCTZ Admission HPI Per Admitting Provider 64-year-old female PMHx HTN, CKD, A-fib on Eliquis, and HLD presenting for syncopal episode afternoon of arrival after being in the heat all day. Patient states that she was outside throughout the day in the heat with another woman. Eventually the officers had told them that it was time to go back inside and as she was heading for the door she started to feel lightheaded/dizzy, feeling as though she was going to fall over. She states that she started to fall down and believes that she had lost consciousness at that point but the one around her helped to hold her up. She is unsure how long she was unconscious for, stating "probably just a few moments." No involuntary movements noted per patient. No history of seizures. She denies experiencing any chest pain, SOB, headache, or additional symptoms prior to this episode. Denies chest pain, SOB, palpitations, abdominal pain, N/V/D/C, numbness/tingling, fever/chills, LUTS, URI symptoms, swelling, or weakness. She is back to her normal health at present. Denies postictal state. She takes all of her medications as prescribed, specifically taking her Eliquis as prescribed. ED evaluation reveals CBC without leukocytosis, H&H 10.3/30.3; CMP creatinine 2.91, BUN 63, ratio 1.6, glucose 130; troponin 12.4; lipase 165; CXR WNL; head CT no acute findings, small chronic L occipital lobe infarct; EKG NSR, possible LAE, LVH at 65 bpm.; Provided with 1L NSS in ED. Please see Dr. Rivera's attestation for adjustments/additions to treatment plan. Discharge Exam General: No acute distress, nondiaphoretic, well-developed, well-nourished. Moist mucous membranes. Skin: Warm, dry. No peripheral edema noted. Bilateral lower extremities with dry skin. Cardiac: Bradycardic rate in 50s and regular rhythm without murmurs gallops or rubs. Pulm: Clear to auscultation bilaterally without wheezes, rales or rhonchi. Normal respiratory effort. 100% on room air. Abdominal: Soft, nontender, nondistended. Bowel sounds present. Neuro: A&O x3. No focal neurological deficits. Discharge Plan Discharge Items [facility] Reason For Visit: SYNCOPE, VAMSI Discharge Diagnosis: Syncope VAMSI Asymptomatic bradycardia Condition on Discharge: Fair Activity: Resume your previous activity Non-emergency contact: Primary Care Provider Call non-emergency contact if: you have any medication questions and your symptoms worsen Follow-up/Referrals: Cabrera Matson MD [Hospitalist] - (Follow-up in 1-2 weeks) Chaparro Moya DO [Primary Care Provider] - Diet: Regular Addtl Attending Provider Instructions: Patti, James were admitted to the hospital after a syncopal episode. Your workup for this was unremarkable, including a head CT, chest x-ray, EKG, echocardiogram, orthostatic vital signs, and telemetry monitoring. Your kidney function was decreased compared to your baseline, and has improved throughout your hospital stay. Your syncopal episode and worsened kidney function was likely due to being dehydrated from being out in the heat. You also were found to have fairly significant bradycardia (low heart rate), though fortunately you did not have symptoms of this. Your metoprolol medication has been reduced to 12.5 mg daily (previously on 25 mg daily), and this could possibly be discontinued all together in the outpatient setting. Hold your spironolactone and hydrochlorothiazide (HCTZ) medications for the next couple days to further improve your kidney function. Your primary care doctor can resume these medications when appropriate. You can continue to use the betamethasone cream twice daily as needed to your areas of eczema. It was a pleasure taking care of you while you were in the hospital! Pending Studies at Discharge: No Skilled Items Patient informed of condition?: Yes DNR: No Discharge Level of Care: Other Communicable Disease: No Discharge Prognosis: Stable Lines: None Urinary Catheter: No Medications and DC Order Prescriptions: New betamethasone valerate 0.1 % Cream 1 applic EXT BID PRN (Reason: skin irritation) Qty: 45 0RF Continued atorvastatin 40 mg Tablet 40 mg PO DAILY nifedipine 90 mg Tablet Extended Release 24hr 90 mg PO DAILY albuterol sulfate [Proventil HFA] 90 mcg/actuation Hfa Aerosol Inhaler 2 puff INHALATION QID PRN (Reason: EXACERBATION) losartan 100 mg Tablet 100 mg PO DAILY Eliquis 5 mg Tablet 5 mg PO BID Jardiance 25 mg Tablet 25 mg PO DAILY Changed metoprolol succinate 25 mg Tablet Extended Release 24 Hr 12.5 mg PO DAILY Qty: 30 0RF Held spironolactone 25 mg Tablet 12.5 mg PO DAILY Hold Instructions: Provider's Order hydrochlorothiazide 12.5 mg Tablet 12.5 mg PO DAILY Hold Instructions: Provider's Order Admission Data Admit Date/Time: 10/15/24 19:35 Attending Provider: [place] Aaron Admit Provider: Rima Rivera Primary Care Provider: Chaparro Moya Other Providers: Riam Rivera Hospital Stay Data Consultations 10/15/24 18:43 ED Decision to Admit Stat Diagnostic Imagining Performed Chest X-Ray 10/15/24 17:43 Chest radiograph, one view History: Chest pain Comparison: None Findings: Single AP view of the chest performed. No focal consolidation or pleural effusion. No pneumothorax. The cardiomediastinal silhouette is within normal limits. Normal pulmonary vascularity. No evidence for lymphadenopathy. No visualized bony or soft tissue abnormality. Impression: Normal chest radiograph Electronically signed by Harshil Toney 10-15-2024 7:[address] 10/15/24 17:43 EXAMINATION: Head CT without CLINICAL HISTORY: Syncope PRIORS: None TECHNIQUE: Contiguous axial images were obtained through the head without the use of intravenous contrast. Sagittal and coronal reformations are supplied. FINDINGS: Appropriate parenchymal volume is noted. Boyd-white differentiation is preserved. No edema or midline shift. A small chronic appearing infarction of the left occipital lobe, medial aspect noted in the BL[employer] OPERATOR distribution. No intra-axial or extra-axial hemorrhage. Ventricles are normal in size and configuration. Brainstem and cerebellum have a normal appearance. Calvarium unremarkable. Paranasal sinuses and mastoid air cells are well-pneumatized. Globes are intact. No retrobulbar abnormality. IMPRESSION: 1. No CT evidence of an acute intracranial abnormality. If clinical concern warrants, brain MRI could be considered. 2. Small chronic left occipital lobe infarction. Electronically signed by Emerald Lucero 07-13-2025 6:20 PM Pending Results Patient Have Any Pending Studies at Discharge: No Discharge Instructions Given to Patient (Per Discharging Provider) Patti, You were admitted to the hospital after a syncopal episode. Your workup for this was unremarkable, including a head CT, chest x-ray, EKG, echocardiogram, orthostatic vital signs, and telemetry monitoring. Your kidney function was decreased compared to your baseline, and has improved throughout your hospital stay. Your syncopal episode and worsened kidney function was likely due to being dehydrated from being out in the heat. You also were found to have fairly significant bradycardia (low heart rate), though fortunately you did not have symptoms of this. Your metoprolol medication has been reduced to 12.5 mg daily (previously on 25 mg daily), and this could possibly be discontinued all together in the outpatient setting. Hold your spironolactone and hydrochlorothiazide (HCTZ) medications for the next couple days to further improve your kidney function. Your primary care doctor can resume these medications when appropriate. You can continue to use the betamethasone cream twice daily as needed to your areas of eczema. It was a pleasure taking care of you while you were in the hospital! Total Time Total Time Spent Total Time Spent (In Minutes): Greater than 30 minutes spent completing this discharge process including direct patient care, medication reconciliation, documentation, review of labs and images, and coordination of care. Coding Level of Care Code 04011 INP/OBS DISCH >30 MIN Diagnoses Syncope R55 Syncope type: unspecified VAMSI (acute kidney injury) N17.9 Bradycardia R00.1 Anemia D64.9
[2024-10-17 10:07] VITALS: BP 151/78
--- NOTE | 2024-10-17 11:45 | Electrocardiogram Report ---
Test Reason : Blood Pressure : */* mmHG Vent. Rate : 46 BPM Atrial Rate : 46 BPM P-R Int : 216 ms QRS Dur : 94 ms QT Int : 484 ms P-R-T Axes : 64 -9 144 degrees QTcB Int : 423 ms Sinus bradycardia with 1st degree A-V block Minimal voltage criteria for LVH, may be normal variant Septal infarct (cited on or before 15-Oct-2024) T wave abnormality, consider lateral ischemia Abnormal ECG When compared with ECG of 15-Oct-2024 17:47, MD interval has increased Confirmed by Victor Manuel Tam ([id number]) on 10/17/2024 11:45:02 AM Referred By: Chaparro Moya Confirmed By: Victor Manuel Tam
== END 2024-10-17 11:12 ==
LOC: ED 17:39 → 2S 17:39 → SUATTDRO 19:35 → 2S 20:35